=== PATIENT | male | born 1965 | race Caucasian/White ===

== ENCOUNTER 2020-07-03 13:31 | Outpatient (CLI) | payer OTHER, SELFPAY ==
--- NOTE | ~2020-07-03 | XR_ITS ---
XR chest 2V DATE: 07/03/2020 13:57 INDICATION: Right-sided chest pain, dyspnea. Prior rib fractures a year ago. TECHNIQUE: PA and lateral views COMPARISON: 06/19/2014 2 view chest FINDINGS: Bilateral severe osteoarthritic changes at the glenohumeral joints. 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 Multiple old fracture deformities of the right rib cage and right clavicular shaft. Normal heart size. No hilar or mediastinal enlargement. Aortic arch calcification. Bilateral hyperinflation suggesting possible obstructive airways disease. No pulmonary infiltrate or consolidation, pleural effusion or pulmonary suggestion or pneumothorax. Minimal dextroscoliosis and mild degenerative spurring of the thoracic spine. IMPRESSION: Bilateral hyperinflation; no active pulmonary disease Severe osteoarthritic changes of the glenohumeral joints, left shoulder synovial osteochondromatosis Multiple old healed right rib clavicular shaft fractures Reviewed, dictated and finalized at location [facility]. IMPRESSION: Bilateral hyperinflation; no active pulmonary disease Severe osteoarthritic changes of the glenohumeral joints, left shoulder synovia l osteochondromatosis Multiple old healed right rib clavicular shaft fractures
== END 2020-07-03 13:32 | disposition home or self-care (01) ==
PROVIDERS: PCP Internal Medicine; Visit Provider Internal Medicine
DX: R06.09 Other forms of dyspnea (principal)
CPT/HCPCS: 71046

== ENCOUNTER 2022-02-27 08:16 | Outpatient (CLI) | payer OTHER, SELFPAY ==
[2022-02-27 09:05] LABS: Basophils Percent Auto 0.6 % (0.2-1.2); Eosinophils Absolute Auto 0.3 K/mm3 (0-0.3); Eosinophils Percent Auto 4.2 % (0-4.4); Hematocrit 45.2 % (42.0-52.0); Hemoglobin 14.9 g/dL (14.0-18.0); Immature Granulocyte Absolute 0.03 K/mm3 (0.00-0.031); Immature Granulocyte Percent A 0.4 % (0-0.5); Lymphocytes Absolute Auto 1.73 K/mm3 (0.9-3.2); Lymphocytes Percent Auto 24.9 % (18.3-44.2); Mean Corpuscular Hemoglobin 31.4 pg (26-34); Mean Corpuscular Volume 95.4 fl (80-100); Mean Platelet Volume 9.2 fl (7.4-10.4); Monocytes Absolute Auto 0.7 K/mm3 (0.1-0.6); Monocytes Percent Auto 9.5 % (2.6-8.5); Neutrophils Absolute Auto 4.2 K/mm3 (1.3-6.7); Neutrophils Percent Auto 60.4 % (45.5-73.1); Platelet Count Result 319 k/mm3 (150-375); Red Blood Count 4.74 M/mm3 (4.6-6.20); Red Cell Distribution Width 12.7 % (11.5-14.5)
[2022-02-27 09:17] LABS: Alanine Aminotransferase 27 U/L (6-50); Albumin Level 4.5 g/dL (3.5-5.1); Alkaline Phosphatase 89 U/L (38-126); Anion Gap 7 mmol/L (8-16); Aspartate Amino Transferase 32 U/L (17-59); Bilirubin,Total 0.6 mg/dL (0.2-1.3); Blood Urea Nitrogen 12 mg/dL (9-20); Carbon Dioxide 28 mmol/L (22-30); Chloride 103 mmol/L (98-107); Estimated Glomerular Filt Rate > 60; Glucose 112 mg/dL (65-110); Potassium 4.6 mmol/L (3.4-5.0); Sodium 138 mmol/L (137-145)
[2022-02-27 09:35] LABS: Free T4 Free Thyroxine 1.12 ng/mL (0.78-2.19); Vitamin D 25 Hydroxy 48.4 ng/mL
[2022-03-05 14:33] LABS: Z Score Male 0.1 SD (-2.0 - +2.0)
[2022-03-05 17:16] LABS: Testosterone Free 39.6 pg/mL (35.0-155.0); Testosterone Total 583 ng/dL (250-1100)
== END 2022-02-27 08:17 | disposition home or self-care (01) ==
LOC: ANHLAB 08:28
PROVIDERS: PCP Internal Medicine
DX: S06.9X9A Unspecified intracranial injury with loss of consciousness of unspecified duration, initial encounter (principal)
CPT/HCPCS: 36415; 80053; 82306; 82533; 84305; 84402; 84403; 84439; 84443; 85025

== ENCOUNTER 2023-02-05 07:35 | Outpatient (CLI) | payer OTHER, SELFPAY ==
--- NOTE | ~2023-02-05 | XR_ITS ---
XR knee LT min 4V 02/05/2023 08:14 Indication: Left knee pain Procedure: 4 views left knee Comparison: No prior studies for comparison. Findings: No acute fracture or traumatic malalignment. There is atherosclerosis. No joint effusion. T here is atherosclerosis. Prominent tibial tuberosity. Impression: 1: No acute bone or joint abnormality. Reviewed, dictated and finalized at location [facility]. Impression: 1: No acute bone or joint abnormality.
--- NOTE | ~2023-02-05 | XR_ITS ---
XR shoulder LT min 2V 02/05/2023 08:14 Indication: Reduction of cough Procedure: 4 views left shoulder Comparison: No prior studies for comparison. Findings: There is severe glenohumeral joint osteoarthritis. There are loose bodies adjacent to the j oint space. No acute fracture or traumatic malalignment. No soft tissue abnormality. No foreign vidhi s. Impression: 1: Severe left glenohumeral joint osteoarthritis with adjacent loose bodies. Reviewed, dictated and finalized at location [facility]. Impression: 1: Severe left glenohumeral joint osteoarthritis with adjacent loose bodies.
--- NOTE | ~2023-02-05 | XR_ITS ---
XR chest 2V 02/05/2023 08:14 Indication: Productive cough Procedure: PA and lateral views of the chest Comparison: Comparison to multiple prior studies sequentially, with oldest reviewed study dated 06/19. Findings: Heart size normal. No focal air space disease, pulmonary edema, pleural effusion or suspect ed pneumothorax. There are multiple healed right rib fractures with callus formation. There is a part ial right shoulder arthroplasty. There is advanced degenerative changes of the left shoulder. The lungs are hyperinflated which is consistent with, but not diagnostic of chronic obstructive pulmo nary disease. Impression: 1: No acute cardiopulmonary disease. Reviewed, dictated and finalized at location [facility]. Impression: 1: No acute cardiopulmonary disease.
--- NOTE | ~2023-02-05 | XR_ITS ---
XR shoulder RT min 2V 02/05/2023 08:14 Indication: Productive cough and shoulder pain. Procedure: 4 views right shoulder Comparison: No prior studies for comparison. Findings: There is a partial right shoulder arthroplasty. Osteopenia. There are multiple healed right rib fractures. No acute fracture or traumatic malalignment. There is a healed right clavicular fract ure. Impression: 1: No acute fracture. Reviewed, dictated and finalized at location A. Impression: 1: No acute fracture.
--- NOTE | ~2023-02-05 | XR_ITS ---
XR knee RT min 4V 02/05/2023 08:14 Indication: Productive cough Procedure: 4 views right knee Comparison: No prior studies for comparison. Findings: No fracture, subluxation or dislocation. No significant joint effusion. There is atheroscle rosis. There is anatomic alignment. Impression: 1: No significant bone or joint abnormality. Reviewed, dictated and finalized at location A. Impression: 1: No significant bone or joint abnormality.
--- NOTE | ~2023-02-05 | XR_ITS ---
XR hip BI 2V w AP pelvis 02/05/2023 08:14 Indication: Hip pain. Pelvic pain. Procedure: AP pelvis and 2 views each Comparison: No prior studies for comparison. Findings: Pelvic rings are intact. Sacral foramen are symmetric. There is heterotopic ossification ad jacent to the right ilium. No acute fracture, subluxation or dislocation. Impression: 1: No acute bone or joint abnormality. Reviewed, dictated and finalized at location A. Impression: 1: No acute bone or joint abnormality.
== END 2023-02-05 07:36 | disposition home or self-care (01) ==
LOC: ANHIMG 07:39
PROVIDERS: PCP Internal Medicine; Visit Provider Physical Medicine & Rehabilitation Pain Medicine
DX: R05.8 Other specified cough (principal); M25.30 Other instability, unspecified joint; M19.012 Primary osteoarthritis, left shoulder; M24.012 Loose body in left shoulder
CPT/HCPCS: 71046; 73030; 73521; 73564

== ENCOUNTER 2023-02-16 15:41 | Outpatient (CLI) | payer OTHER, SELFPAY ==
--- NOTE | ~2023-02-16 | MR_ITS ---
MRI of the lumbar spine Clinical History: Radiculopathy Technique: Axial T2-weighted images, and sagittal T1-weighted, T2-weighted, and T2 fat-sat images wer e acquired. Findings: There is no fracture or subluxation of lumbar spine. Vertebral bodies maintain normal heigh t and alignment. There are multilevel reactive marrow signal changes due to degenerative disc disease . No suspicious bone marrow signal abnormality seen. At L1-L2, there is minimal disc bulge and mild facet arthropathy. No central canal stenosis or defini te neural foraminal narrowing. At L2-L3, there is minimal disc bulge and mild facet arthropathy. No central canal stenosis or neural foraminal narrowing. At L3-L4, there is mild disc bulge and mild to moderate facet arthropathy. No central canal stenosis. There is mild to moderate left neural foraminal narrowing. There is minimal right neural foraminal n arrowing. At L4-L5, there is diffuse disc bulge with probable cirrhosis protrusion at the central to left parac entral/left foraminal region. There is moderate facet arthropathy. There is left lateral recess steno sis and moderate left neural foraminal narrowing. There is mild to moderate right neural foraminal na rrowing. At L5-S1, there is minimal disc bulge and mild facet arthropathy. No central canal stenosis. There is mild to moderate right neural foraminal narrowing. Left neural foramen preserved. Paravertebral soft tissues are unremarkable. Impression: Mild to [id number] degenerative spondylitic changes, as detailed above. Reviewed, dictated and finalized at [facility]. Impression: Mild to [id number] degenerative spondylitic changes, as detailed above.
--- NOTE | ~2023-02-16 | MR_ITS ---
MRI of the cervical spine Clinical History: Cervical radiculopathy Technique: Axial T2-weighted and gradient images, and sagittal T1-weighted, T2-weighted, and STIR bailey ges were acquired. Findings: There is no fracture or subluxation of the cervical spine. Vertebral bodies maintain normal height and alignment. No suspicious bone marrow signal abnormality seen. At C2-C3, there is no disc bulge or herniation. No spinal canal stenosis, cord compression, or neural foraminal narrowing. At C3-C4, there is right paracentral disc bulge. No central canal stenosis, cord compression, or neur al foraminal narrowing. At C4-C5, there is degenerative disc narrowing with minimal disc osteophyte complex. No central canal stenosis or cord compression. There is mild bilateral facet arthropathy probable mild bilateral neur al foraminal narrowing. At C5-C6, there is no disc bulge or herniation. No spinal canal stenosis, cord compression, or defini te neural foraminal narrowing. At C6-C7, there is minimal disc osteophyte complex. No spinal canal stenosis, cord compression, or ne ural foraminal narrowing. No abnormal signal seen in the spinal cord. No epidural mass or collection. Paravertebral soft tissue s are unremarkable. Impression: Mild degenerative spondylosis, most prominent at C4-C5, as detailed above. Reviewed, dictated and finalized at [facility]. Impression: Mild degenerative spondylosis, most prominent at C4-C5, as detailed above.
== END 2023-02-16 15:42 | disposition home or self-care (01) ==
LOC: ANHIMG 15:43
PROVIDERS: PCP Internal Medicine; Visit Provider Physical Medicine & Rehabilitation Pain Medicine
DX: M47.22 Other spondylosis with radiculopathy, cervical region (principal); M47.26 Other spondylosis with radiculopathy, lumbar region
CPT/HCPCS: 72141; 72148